=== PATIENT | male | born 1995 | race Caucasian/White ===

== ENCOUNTER 2017-08-22 11:02 | Emergency (ER) | payer MEDICAID ==
[~2017-08-22] VITALS: Ht 167.6 cm; Wt 90.9 kg
[2017-08-22] MEDS ORDERED: ondansetron 4mg rapidly disintigrating tab PO ONE (13:25)
[2017-08-22] MEDS ORDERED: naproxen 500mg tablet PO ONE (13:25)
[2017-08-22] MEDS ORDERED: meclizine 12.5mg tablet PO ONE (13:25)
[2017-08-22] MEDS ORDERED: ONDA4TAB12 PO (13:27)
[2017-08-22] MEDS ORDERED: MECL-111 PO (13:27)
[2017-08-22 13:52] VITALS: BP 129/88
== END 2017-08-22 13:55 | disposition home or self-care (01) ==
LOC: ER 11:02
DX: R42 Dizziness and giddiness (principal)
CPT/HCPCS: 99284; J8597

== ENCOUNTER 2018-03-28 19:23 | Emergency (ER) | payer MEDICAID ==
[~2018-03-28] VITALS: Ht 172.7 cm; Wt 85.0 kg
[~2018-03-28 19:23] MED LIST: MECL-111 PO; ONDA4TAB12 PO
[2018-03-28 19:40] VITALS: BP 140/76
== END 2018-03-28 21:15 | disposition left against medical advice (07) ==
LOC: ER 19:25
DX: M25.561 Pain in right knee (principal); Z76.0 Encounter for issue of repeat prescription; Z59.0 Homelessness; Z53.21 Procedure and treatment not carried out due to patient leaving prior to being seen by health care provider

== ENCOUNTER 2018-12-24 09:10 | Emergency (ER) | payer MEDICAID ==
[~2018-12-24] VITALS: Ht 172.7 cm; Wt 118.2 kg
[2018-12-24 09:17] VITALS: BP 147/98
[2018-12-24] MEDS ORDERED: rabies vaccine (PCEC)/PF 2.5 unit kit IM ONE (09:30)
[2018-12-24] MEDS ORDERED: TETanus/Pertussis (Acell)/Diphther VAC/PF (Tdap-Adult) 0.5ml syringe IM ONE (09:35)
== END 2018-12-24 09:52 ==
LOC: ER 09:11
DX: Z02.89 Encounter for other administrative examinations (principal); Z59.0 Homelessness
CPT/HCPCS: 90471; 90715; 99283

== ENCOUNTER 2020-11-20 21:49 | Emergency (ER) | payer MEDICARE, MEDICAID ==
[~2020-11-20] VITALS: Ht 172.7 cm; Wt 104.2 kg
[~2020-11-20 21:49] MED LIST changes: -MECL-111 PO; +MECL-159 PO
[2020-11-20 22:00] VITALS: BP 130/78
[2020-11-20] MEDS ORDERED: ketorolac trometh. 30mg/ml inj. IM ONE (23:45)
[2020-11-20] MEDS ORDERED: LIDOcaine Viscous 15ml cup MM ONE (23:45)
[2020-11-20] MEDS ORDERED: AMOX-117 PO (23:49)
[2020-11-20] MEDS ORDERED: amox tr/potassium clavulanate 875/125mg TAB PO ONE (23:55)
== END 2020-11-21 00:49 | disposition home or self-care (01) ==
LOC: ER 21:50
DX: H66.91 Otitis media, unspecified, right ear (principal); Z59.0 Homelessness; Z60.2 Problems related to living alone; Z79.899 Other long term (current) drug therapy
CPT/HCPCS: 96372; 99283; J1885

== ENCOUNTER 2021-02-16 23:00 | Emergency (ER) | payer MEDICARE, MEDICAID ==
[~2021-02-16] VITALS: Ht 167.6 cm; Wt 81.8 kg
[2021-02-16 23:22] LABS: BASOPHILS % (AUTO) 0.2 % (0-1); EOSINOPHILS # (AUTO) 0.1 X10'3 (0-0.9); EOSINOPHILS % (AUTO) 0.7 % (0-6); HEMATOCRIT 42.9 % (42.0-52.0); HEMOGLOBIN 14.8 g/dl (14.0-17.9); LYMPHOCYTES # (AUTO) 1.7 X10'3 (1.1-4.8); LYMPHOCYTES % (AUTO) 22.1 % (21-51); MEAN CORPUSCULAR HEMOGLOBIN 29.5 PG (27.0-31.0); MEAN CORPUSCULAR HGB CONC 34.6 g/dL (33.0-36.5); MEAN CORPUSCULAR VOLUME 85.3 FL (78-98); MEAN PLATELET VOLUME 6.6 FL (7.4-10.4); MONOCYTES # (AUTO) 0.7 X10'3 (0-0.9); MONOCYTES % (AUTO) 8.3 % (2-12); NEUTROPHILS # (AUTO) 5.4 X10'3 (1.8-7.7); NEUTROPHILS % (AUTO) 68.7 % (42-75); PLATELET COUNT 214 X10'3 (140-440); RED BLOOD COUNT 5.03 X10'6 (4.70-6.10); RED CELL DISTRIBUTION WIDTH 13.3 % (11.5-14.5); WHITE BLOOD COUNT 7.9 X10'3 (4.5-11.0)
[2021-02-16 23:36] LABS: ALANINE AMINOTRANSFERASE 38 U/L (12-78); ALBUMIN 4.2 G/DL (3.4-5.0); ALBUMIN/GLOBULIN RATIO 1.2 (1.1-1.5); ALKALINE PHOSPHATASE 46 IU/L (46-116); ANION GAP 14 (8-16); ASPARTATE AMINO TRANSFERASE 20 U/L (10-37); BILIRUBIN,TOTAL 0.6 MG/DL (0.1-1.0); BLOOD UREA NITROGEN 21 MG/DL (7-18); BUN/CREATININE RATIO 21.6 (5.4-32.0); CALCIUM 8.6 MG/DL (8.5-10.1); CHLORIDE 105 MMOL/L (99-107); CREATININE 0.97 MG/DL (0.60-1.10); ETHANOL < 0.010 GM/DL (0.0-0.010); GLUCOSE 107 MG/DL (70-104); POTASSIUM 3.2 MMOL/L (3.5-5.1); SODIUM 141 MMOL/L (135-145); TOTAL CARBON DIOXIDE 22.4 MMOL/L (24-32); TOTAL PROTEIN 7.7 G/DL (6.4-8.2); eGFR > 90 ML/MIN
[2021-02-17 01:08] LABS: URINE AMPHETAMINE SCREEN NEGATIVE (Neg); URINE BARBITUATE SCREEN NEGATIVE (Neg); URINE BENZODIAZEPINES SCREEN NEGATIVE (Neg); URINE CANNABINOID SCREEN NEGATIVE (Neg); URINE COCAINE SCREEN NEGATIVE (Neg); URINE METHADONE SCREEN NEGATIVE (Neg); URINE OPIATE SCREEN NEGATIVE (Neg); URINE PHENCYCLIDINE SCREEN NEGATIVE (Neg)
--- NOTE | 2021-02-17 01:27 | NUR ---
PT SEEKING CONSTANT ATTENTION. HE IS ASKING QUESTIONS TO EVERY STAFF MEMBER THAT WALKS BY. HE IS CURRENTLY IN THE HALLWAY AWAITING A ROOM.
[2021-02-17] MEDS ORDERED: ondansetron 4mg rapidly disintigrating tab PO ONE (02:35)
[2021-02-17] MEDS ORDERED: acetaminophen 325mg tablet PO ONE (02:35)
[2021-02-17] MEDS ORDERED: potassium Cl 20 mEq SR tablet PO STA (04:04)
--- NOTE | 2021-02-17 05:15 | NUR ---
PT CHANGED INTO [facility]
--- NOTE | 2021-02-17 05:53 | NUR ---
pt states he took several sleeping pills about a week ago to see what happened. pt stated he did not want to and it was a "half-hearted attempt"
[2021-02-17] MEDS ORDERED: ACET-75 PO (05:57)
[2021-02-17] MEDS ORDERED: IBUP-1985 PO (05:57)
[2021-02-17] MEDS ORDERED: CLON-330 PO (05:57)
[2021-02-17] MEDS ORDERED: HYDR50TA65 PO (05:57)
--- NOTE | 2021-02-17 09:12 | NUR ---
PATIENT SPOKE WITH [facility], PATIENT GIVEN BREAKFAST TRAY AND IS ON PHONE WITH [facility], DR VERMA AWARE PATIENT PENDING DISCHARGE PER [facility]. NO SIGNS OF DISTRESS NOTED, PAT WITHIN VIEW OF STAFF AT ALL TIMES.
[2021-02-17 09:24] VITALS: BP 117/67
== END 2021-02-17 10:03 | disposition home or self-care (01) ==
LOC: ER 23:01
DX: R45.851 Suicidal ideations (principal); E87.6 Hypokalemia; Z60.2 Problems related to living alone; Z59.0 Homelessness; Z91.030 Bee allergy status; Z88.8 Allergy status to other drugs, medicaments and biological substances; Z79.899 Other long term (current) drug therapy
CPT/HCPCS: 36415; 80053; 80305; 80320; 84443; 85025; 99285

== ENCOUNTER 2022-11-09 12:34 | Emergency (ER) | payer MEDICARE, MEDICAID ==
[~2022-11-09 12:34] MED LIST changes: +ACET-75 PO; +CLON-330 PO; +HYDR50TA65 PO; +IBUP-1985 PO; -MECL-159 PO; -ONDA4TAB12 PO
== END 2022-11-09 13:12 ==
LOC: ER 12:36
DX: T65.891A Toxic effect of other specified substances, accidental (unintentional), initial encounter (principal); R45.1 Restlessness and agitation; F31.9 Bipolar disorder, unspecified; Z91.030 Bee allergy status; Z88.8 Allergy status to other drugs, medicaments and biological substances; Z79.899 Other long term (current) drug therapy; Z79.1 Long term (current) use of non-steroidal anti-inflammatories (NSAID); Z79.2 Long term (current) use of antibiotics; Y92.89 Other specified places as the place of occurrence of the external cause
CPT/HCPCS: 99283

== ENCOUNTER 2023-06-24 20:20 | Emergency (ER) | payer MEDICARE, MEDICAID ==
[~2023-06-24] VITALS: Ht 172.7 cm; Wt 104.0 kg
[2023-06-24 20:30] VITALS: TEMP 98.2
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
[2023-06-24 21:39] LABS: ACETAMINOPHEN 15.5 UG/ML (10-30); ALANINE AMINOTRANSFERASE 25 U/L (12-78); ALBUMIN 4.5 G/DL (3.4-5.0); ALBUMIN/GLOBULIN RATIO 1.4 (1.1-1.5); ALKALINE PHOSPHATASE 56 IU/L (46-116); ANION GAP 15 (8-16); ASPARTATE AMINO TRANSFERASE 16 U/L (10-37); BILIRUBIN,TOTAL 0.3 MG/DL (0.1-1.0); BLOOD UREA NITROGEN 28 MG/DL (7-18); BUN/CREATININE RATIO 25.5 (10.0-20.0); CALCIUM 9.2 MG/DL (8.5-10.1); CHLORIDE 102 MMOL/L (99-107); GLUCOSE 138 MG/DL (70-104); POTASSIUM 3.9 MMOL/L (3.5-5.1); SODIUM 138 MMOL/L (135-145); TOTAL CARBON DIOXIDE 21.5 MMOL/L (24-32); TOTAL PROTEIN 7.8 G/DL (6.4-8.2); eCRCL 98 ML/MIN; eGFR 81 ML/MIN
[2023-06-24 21:42] LABS: EOSINOPHILS % (AUTO) 0.2 % (0-6); LYMPHOCYTES # (AUTO) 1.3 X10'3 (1.1-4.8)
[2023-06-24 21:43] LABS: BASOPHILS % (AUTO) 0.1 % (0-1); HEMATOCRIT 45.6 % (42.0-52.0); HEMOGLOBIN 15.4 g/dl (14.0-17.9); MEAN CORPUSCULAR HEMOGLOBIN 29.3 PG (27.0-31.0); MEAN CORPUSCULAR HGB CONC 33.8 g/dL (33.0-36.5); MEAN CORPUSCULAR VOLUME 86.8 FL (78-98); MEAN PLATELET VOLUME 7.1 FL (7.4-10.4); MONOCYTES # (AUTO) 0.5 X10'3 (0-0.9); MONOCYTES % (AUTO) 4.7 % (2-12); NEUTROPHILS # (AUTO) 9.3 X10'3 (1.8-7.7); PLATELET COUNT 245 X10'3 (140-440); RED BLOOD COUNT 5.25 X10'6 (4.70-6.10); RED CELL DISTRIBUTION WIDTH 13.3 % (11.5-14.5); WHITE BLOOD COUNT 11.2 X10'3 (4.5-11.0)
[2023-06-24 22:04] VITALS: BP 120/67; PULSE 104; RESP 18; O2SAT 96
== END 2023-06-24 22:06 ==
LOC: ER 20:20
DX: Z00.00 Encounter for general adult medical examination without abnormal findings (principal); Z91.030 Bee allergy status; Z88.8 Allergy status to other drugs, medicaments and biological substances; Z79.899 Other long term (current) drug therapy
CPT/HCPCS: 36415; 80053; 80329; 85025; 99283

== ENCOUNTER 2024-02-22 11:38 | Emergency (ER) | payer MEDICARE, MEDICAID ==
[~2024-02-22] VITALS: Ht 172.7 cm; Wt 102.3 kg
[2024-02-22 12:48] LABS: BASOPHILS % (AUTO) 0.1 % (0-1); EOSINOPHILS % (AUTO) 0.2 % (0-6); HEMATOCRIT 44.7 % (42.0-52.0); HEMOGLOBIN 15.3 g/dl (14.0-17.9); LYMPHOCYTES # (AUTO) 0.6 X10'3 (1.1-4.8); LYMPHOCYTES % (AUTO) 5.6 % (21-51); MEAN CORPUSCULAR HEMOGLOBIN 29.8 PG (27.0-31.0); MEAN CORPUSCULAR HGB CONC 34.2 g/dL (33.0-36.5); MEAN PLATELET VOLUME 6.7 FL (7.4-10.4); MONOCYTES # (AUTO) 0.4 X10'3 (0-0.9); MONOCYTES % (AUTO) 3.8 % (2-12); NEUTROPHILS % (AUTO) 90.3 % (42-75); PLATELET COUNT 250 X10'3 (140-440); RED BLOOD COUNT 5.14 X10'6 (4.70-6.10); RED CELL DISTRIBUTION WIDTH 13.5 % (11.5-14.5); WHITE BLOOD COUNT 9.9 X10'3 (4.5-11.0)
[2024-02-22 12:50] LABS: BILIRUBIN,URINE NEGATIVE (Neg); CLARITY,URINE CLEAR (Clear); COLOR,URINE YELLOW (Yellow); GLUCOSE, URINE NEGATIVE (Neg); KETONES,URINE NEGATIVE (Neg); LEUKOCYTE ESTERASE ,URINE NEGATIVE (Neg); NITRITES, URINE NEGATIVE (Neg); OCCULT BLOOD,URINE NEGATIVE (Neg); PH,URINE 6.5 (4.8-8.0); PROTEIN,URINE NEGATIVE (Neg); UROBILINOGEN,URINE 0.2 E.U/dL (0.2-1.0)
[2024-02-22 12:58] LABS: UA COLLECTION TYPE VOIDED
[2024-02-22 13:02] LABS: ALANINE AMINOTRANSFERASE 35 U/L (12-78); ALBUMIN 4.5 G/DL (3.4-5.0); ALBUMIN/GLOBULIN RATIO 1.2 (1.1-1.5); ALKALINE PHOSPHATASE 53 IU/L (46-116); ANION GAP 10 (8-16); ASPARTATE AMINO TRANSFERASE 15 U/L (10-37); BILIRUBIN,TOTAL 0.7 MG/DL (0.1-1.0); BLOOD UREA NITROGEN 20 MG/DL (7-18); BUN/CREATININE RATIO 24.7 (10.0-20.0); CALCIUM 9.4 MG/DL (8.5-10.1); CHLORIDE 101 MMOL/L (99-107); CREATININE 0.81 MG/DL (0.60-1.10); GLUCOSE 107 MG/DL (70-104); LIPASE 21 U/L (16-77); POTASSIUM 3.7 MMOL/L (3.5-5.1); SODIUM 137 MMOL/L (135-145); TOTAL CARBON DIOXIDE 26.1 MMOL/L (24-32); TOTAL PROTEIN 8.2 G/DL (6.4-8.2); eCRCL 133 ML/MIN; eGFR > 90 ML/MIN
[2024-02-22] MEDS: ondansetron 4mg rapidly disintigrating tab PO ONE (13:04)
[2024-02-22] MEDS ORDERED: ONDA-245 PO (13:26)
[2024-02-22] MEDS: normal saline 1000ML IV soln IVB ONE (13:33)
[2024-02-22] MEDS: diphenhydrAMINE 50 mg/ml inj IV ONE (13:34)
[2024-02-22] MEDS: proCHLORperazine 10 MG/2 ml inj IV ONE (13:34)
[2024-02-22 13:42] VITALS: BP 132/68; PULSE 87; RESP 16; TEMP 98.2; O2SAT 99
[2024-02-22] MEDS: normal saline 1000ml 1,000 ML IV ONE (13:42)
== END 2024-02-22 14:29 | disposition home or self-care (01) ==
LOC: ER 11:39
DX: E86.0 Dehydration (principal); R10.84 Generalized abdominal pain; Z91.030 Bee allergy status; Z88.8 Allergy status to other drugs, medicaments and biological substances; Z88.6 Allergy status to analgesic agent; Z79.899 Other long term (current) drug therapy; Z79.1 Long term (current) use of non-steroidal anti-inflammatories (NSAID)
CPT/HCPCS: 36415; 80053; 81003; 83690; 85025; 96361; 96374; 96375; 99284; J0780; J1200; J7030

== ENCOUNTER 2024-08-08 16:14 | Emergency (ER) | payer MEDICARE, MEDICAID ==
[~2024-08-08] VITALS: Ht 172.7 cm; Wt 113.6 kg
[~2024-08-08 16:14] MED LIST changes: +ONDA-245 PO
[2024-08-08 16:41] VITALS: TEMP 97.6
[2024-08-08 18:05] LABS: ETHANOL < 10 MG/DL (<10); SALICYLATE 1.1 MG/DL (4.0-20.0)
[2024-08-08 23:45] VITALS: BP 115/69; PULSE 54; RESP 19; O2SAT 97
== END 2024-08-08 23:47 | disposition home or self-care (01) ==
LOC: ER 16:15
DX: R42 Dizziness and giddiness (principal); T46.5X5A Adverse effect of other antihypertensive drugs, initial encounter; F41.9 Anxiety disorder, unspecified; F32.A Depression, unspecified; Z91.030 Bee allergy status; Z88.8 Allergy status to other drugs, medicaments and biological substances; Z79.899 Other long term (current) drug therapy; Z60.2 Problems related to living alone; Z59.01 Sheltered homelessness; Y92.89 Other specified places as the place of occurrence of the external cause
CPT/HCPCS: 36415; 80329; 93005; 99285; G0480; 80320

== ENCOUNTER 2024-09-30 13:52 | Emergency (ER) | payer MEDICARE, MEDICAID ==
[~2024-09-30] VITALS: Ht 172.7 cm; Wt 88.6 kg
[2024-09-30 16:28] LABS: BASOPHILS % (AUTO) 0.1 % (0-1); EOSINOPHILS # (AUTO) 0.1 X10'3 (0-0.9); EOSINOPHILS % (AUTO) 0.5 % (0-6); HEMATOCRIT 42.2 % (42.0-52.0); HEMOGLOBIN 14.6 g/dl (14.0-17.9); LYMPHOCYTES # (AUTO) 1.4 X10'3 (1.1-4.8); LYMPHOCYTES % (AUTO) 8.9 % (21-51); MEAN CORPUSCULAR HEMOGLOBIN 29.5 PG (27.0-31.0); MEAN CORPUSCULAR HGB CONC 34.6 g/dL (33.0-36.5); MEAN CORPUSCULAR VOLUME 85.3 FL (78-98); MEAN PLATELET VOLUME 6.9 FL (7.4-10.4); MONOCYTES # (AUTO) 0.9 X10'3 (0-0.9); NEUTROPHILS # (AUTO) 13.1 X10'3 (1.8-7.7); NEUTROPHILS % (AUTO) 84.5 % (42-75); PLATELET COUNT 219 X10'3 (140-440); RED BLOOD COUNT 4.95 X10'6 (4.70-6.10); RED CELL DISTRIBUTION WIDTH 13.8 % (11.5-14.5); WHITE BLOOD COUNT 15.5 X10'3 (4.5-11.0)
[2024-09-30 16:36] LABS: ALANINE AMINOTRANSFERASE 82 U/L (12-78); ALKALINE PHOSPHATASE 61 IU/L (46-116); ANION GAP 8 (8-16); ASPARTATE AMINO TRANSFERASE 36 U/L (10-37); BILIRUBIN,TOTAL 0.3 MG/DL (0.1-1.0); BLOOD UREA NITROGEN 17 MG/DL (7-18); CHLORIDE 103 MMOL/L (99-107); CREATININE 0.81 MG/DL (0.60-1.10); GLUCOSE 109 MG/DL (70-104); MAGNESIUM 1.8 MG/DL (1.5-2.4); POTASSIUM 3.2 MMOL/L (3.5-5.1); SODIUM 138 MMOL/L (135-145); TOTAL CARBON DIOXIDE 26.9 MMOL/L (24-32); TOTAL PROTEIN 7.9 G/DL (6.4-8.2); eCRCL 131 ML/MIN; eGFR > 90 ML/MIN
[2024-09-30] MEDS: ondansetron/PF 4mg/2ml inj IV ONE (17:43)
[2024-09-30] MEDS: acetaminophen 1,000mg/100ml IV 100 ML IV ONE (17:43)
[2024-09-30] MEDS: normal saline 1000ML IV soln IV ONE (17:43)
[2024-09-30 18:37] LABS: STREP A SCREEN NEGATIVE (Neg)
[2024-09-30] MEDS ORDERED: IBUP-862 PO (19:08)
[2024-09-30] MEDS ORDERED: AMOX500C2 PO (19:08)
[2024-09-30] MEDS: CefTRIAXone/D5W-Rocephin 1gm 50 ML IV ONE (19:47)
[2024-09-30 19:50] LABS: BILIRUBIN,URINE NEGATIVE (Neg); CLARITY,URINE CLEAR (Clear); COLOR,URINE YELLOW (Yellow); GLUCOSE, URINE NEGATIVE (Neg); KETONES,URINE TRACE mg/dl (Neg); LEUKOCYTE ESTERASE ,URINE NEGATIVE (Neg); NITRITES, URINE NEGATIVE (Neg); OCCULT BLOOD,URINE NEGATIVE (Neg); PROTEIN,URINE NEGATIVE (Neg); UROBILINOGEN,URINE 0.2 E.U/dL (0.2-1.0)
[2024-09-30 19:56] LABS: UA COLLECTION TYPE CLN CATCH MIDSTREAM
[2024-09-30 21:29] VITALS: BP 112/62; PULSE 99; RESP 18; TEMP 98.6; O2SAT 98
== END 2024-09-30 21:30 | disposition home or self-care (01) ==
LOC: ER 13:52
DX: J06.9 Acute upper respiratory infection, unspecified (principal); F41.9 Anxiety disorder, unspecified; F32.A Depression, unspecified; Z91.030 Bee allergy status; Z59.01 Sheltered homelessness; Z79.899 Other long term (current) drug therapy; Z88.8 Allergy status to other drugs, medicaments and biological substances; Z60.2 Problems related to living alone; Z20.822 Contact with and (suspected) exposure to COVID-19
CPT/HCPCS: 36415; 71045; 80053; 81003; 83605; 83735; 84145; 85025; 87040; 87081; 87502; 87503; 87811; 87880; 96365; 96366; 96368; 96375; 99284; J0131; J0696; J2405; J7030

== ENCOUNTER 2024-11-18 00:40 | Emergency (ER) | payer MEDICARE, MEDICAID ==
[~2024-11-18] VITALS: Ht 175.3 cm; Wt 100.2 kg
[~2024-11-18 00:40] MED LIST changes: +IBUP-862 PO
[2024-11-18 00:48] VITALS: TEMP 98.2
[2024-11-18 01:55] VITALS: BP 142/98; PULSE 71; O2SAT 100
[2024-11-18 02:00] VITALS: RESP 18
== END 2024-11-18 02:10 | disposition left against medical advice (07) ==
LOC: ER 00:41
DX: Z00.8 Encounter for other general examination (principal); Z76.0 Encounter for issue of repeat prescription; Z88.8 Allergy status to other drugs, medicaments and biological substances; F41.9 Anxiety disorder, unspecified; F32.A Depression, unspecified
CPT/HCPCS: 99281